=== PATIENT | female | born 1975 ===

== ENCOUNTER → 2018-06-10 22:34 | Outpatient (REF) | payer OTHER, SELFPAY ==
[2018-06-13 22:07] LABS: RPR Screen Nonreactive (Nonreactive)
[2018-06-14 14:09] LABS: Rubeola Measles IgG < 25.00 AU/mL (< 25.00)
== END ==
LOC: LAB 22:34
PROVIDERS: Visit Provider Family Medicine
DX: Z11.1 Encounter for screening for respiratory tuberculosis (principal); Z11.3 Encounter for screening for infections with a predominantly sexual mode of transmission
CPT/HCPCS: 36415; 86592; 86735; 86762; 86765; 87591